=== PATIENT | male | born 1990 | race Caucasian/White ===

== ENCOUNTER 2016-05-25 16:28 | Emergency (ER) | payer BC ==
[2016-05-25 17:34] VITALS: BP 111/68
--- NOTE | 2016-05-25 17:53 | UC ---
Throat Pain/Nasal Theo HPI - HPI Summary HPI Summary: Sore throat for a couple of days - History of Current Complaint Chief Complaint: UCRespiratory Stated Complaint: SORE THROAT Time Seen by Provider: 05/25/16 17:46 Hx Obtained From: Patient Onset/Duration: Sudden Onset, Lasting Days - 2, Still Present Severity: Moderate Pain Intensity: 5 Pain Scale Used: 0-10 Numeric Cough: None Associated Signs & Symptoms: Positive: Negative - Allergies/Home Medications Allergies/Adverse Reactions: Allergies Allergy/AdvReac Type Severity Reaction Status Date / Time No Known Allergies Allergy Verified 05/25/16 17:34 Home Medications: Home Medications NK [No Home Medications Reported] 05/25/16 [History Confirmed 05/25/16] PMH/Surg Hx/FS Hx/Imm Hx Previously Healthy: Yes - Surgical History Surgical History: None - Family History Known Family History: Positive: None - Social History Occupation: Employed Full-time - in retail Lives: With Family Alcohol Use: Rare Substance Use Type: None Smoking Status (MU): Never Smoked Tobacco Review of Systems Constitutional: Negative Skin: Negative Eyes: Negative ENT: Sore Throat Respiratory: Negative Cardiovascular: Negative Gastrointestinal: Negative Genitourinary: Negative Motor: Negative Neurovascular: Negative Musculoskeletal: Negative Neurological: Negative Psychological: Negative All Other Systems Reviewed And Are Negative: Yes Physical Exam Triage Information Reviewed: Yes Appearance: Well-Appearing, No Pain Distress, Well-Nourished Vital Signs: Initial Vital Signs Temp 99.2 F 05/25/16 17:31 Pulse 78 05/25/16 17:31 Resp 16 05/25/16 17:31 BP 111/68 05/25/16 17:31 Pulse Ox 100 05/25/16 17:31 Vital Signs Reviewed: Yes Eye Exam: Normal Eyes: Positive: Conjunctiva Clear ENT Exam: Normal ENT: Positive: Normal ENT inspection, Hearing grossly normal, Pharynx normal, TMs normal. Negative: Nasal congestion, Nasal drainage, Tonsillar swelling, Tonsillar exudate, Trismus, Muffled/hoarse voice Dental Exam: Normal Neck exam: Normal Neck: Positive: Supple, Nontender, No Lymphadenopathy Respiratory Exam: Normal Respiratory: Positive: Chest non-tender, Lungs clear, Normal breath sounds, No respiratory distress, No accessory muscle use Cardiovascular Exam: Normal Cardiovascular: Positive: RRR, No Murmur, Pulses Normal, Brisk Capillary Refill Musculoskeletal Exam: Normal Musculoskeletal: Positive: Strength Intact, ROM Intact, No Edema Neurological Exam: Normal Neurological: Positive: Alert, Muscle Tone Normal Psychological Exam: Normal Skin Exam: Normal Diagnostics - Laboratory Diagnostic Studies Completed/Ordered: RST (-) Throat Pain/Nasal Course/Dx - Course Assessment/Plan: ibuprofen, tylenol, rest increase fluids, follow with pcp prn - Differential Dx/Diagnosis Differential Diagnosis/HQI/PQRI: Laryngitis, Pharyngitis, Sinusitis, URI Provider Diagnoses: Viral syndrome, pharyngitis Discharge - Discharge Plan Condition: Stable Disposition: HOME Patient Education Materials: Pharyngitis (ED), Viral Syndrome (ED) Referrals: [facility] [place] [facility] [Outside] - If Needed
== END 2016-05-25 18:01 | disposition home or self-care (01) ==
LOC: UCEAST 16:28
DX: B34.9 Viral infection, unspecified (principal); J02.9 Acute pharyngitis, unspecified
CPT/HCPCS: 87651; 99201; G0463

== ENCOUNTER 2016-07-10 09:09 | Emergency (ER) | payer BC ==
[2016-07-10 09:37] VITALS: BP 98/55
--- NOTE | 2016-07-11 12:58 | UC ---
[facility] [place], [facility]10[facility]16 at 1045 . General HPI - HPI Summary HPI Summary: In Room note: Patient is a 25 y/o male who presents to the with N/V/D since 0100 today. He reports a subjective fever, chills, general malaise, headache (within temples) and abd pain, but denies ear pain or urinary sx. Pt states he has been drinking An Cassia. He denies a hx of similar sx or any sick family members or friends. note: VSS, temperature: 99.4, 4/10 abd pain. Visit hx: non-contributory. No px medication. No allergies. Nurses note: nausea and vomiting, diarrheal stool started last pm - History of Current Complaint Chief Complaint: UCAbdominalPain Stated Complaint: VOMITING DIZZY FLU Time Seen by Provider: 07/10/16 10:31 Hx Obtained From: Patient Onset/Duration: Gradual Onset, Lasting Hours, Still Present Timing: Intermittent Episodes Lasting: Onset Severity: Moderate Current Severity: Moderate Pain Intensity: 4 - out of 10. Pain Location at: Diffuse abd pain. Aggravating: Nothing. Alleviating: Nothing. Associated Signs & Symptoms: Positive: Abdominal Pain, Diarrhea, Fever, Headache , Nausea, Vomiting, Other - General malaise. Chills. - Allergy/Home Medications Allergies/Adverse Reactions: Allergies Allergy/AdvReac Type Severity Reaction Status Date / Time No Known Allergies Allergy Verified 05/25/16 17:34 PMH/Surg Hx/FS Hx/Imm Hx Endocrine History Of: Denies: Diabetes, Thyroid Disease Cardiovascular History Of: Denies: Cardiac Disorders, Hypertension Respiratory History Of: Denies: COPD, Asthma GI/ History Of: Denies: Ulcer - Surgical History Surgical History: None - Family History Known Family History: Positive: Other - No CA. Negative: Cardiac Disease, Hypertension - Social History Alcohol Use: Rare Substance Use Type: None Smoking Status (MU): Never Smoked Tobacco Review of Systems Constitutional: Fever, Chills, Other - General malaise. ENT: Other - No ear pain. Gastrointestinal: Abdominal Pain Genitourinary: Negative Neurological: Headache All Other Systems Reviewed And Are Negative: Yes Physical Exam Triage Information Reviewed: Yes Appearance: Well-Appearing, No Pain Distress, Well-Nourished Vital Signs: Initial Vital Signs Temp 99.4 F 07/10/16 09:33 Pulse 94 07/10/16 09:33 Resp 20 07/10/16 09:33 BP 98/55 07/10/16 09:33 Pulse Ox 100 07/10/16 09:33 Vital Signs Reviewed: Yes Eyes: Positive: Conjunctiva Clear ENT: Positive: Hearing grossly normal, Pharynx normal, TMs normal. Negative: Muffled/hoarse voice Neck: Positive: Supple, No Lymphadenopathy Respiratory: Positive: Chest non-tender, Lungs clear, Normal breath sounds, No respiratory distress Cardiovascular: Positive: RRR, No Murmur Abdomen Description: Positive: Nontender, No Organomegaly, Soft, Other: - Negative Eden's sign and McBurney's sign.. Negative: CVA Tenderness (R), CVA Tenderness (L) Bowel Sounds: Positive: Hyperactive Musculoskeletal: Positive: Strength Intact Neurological: Positive: Alert Psychological: Positive: Age Appropriate Behavior Skin: Negative: rashes Course/Dx - Course Course Of Treatment: Medications have been included in the original chart and reviewed. I discussed with the pt the various possibilities, and explained that he probably has gastroenteritis. He should restrict his intake, rest, and watch for any signs of dehydration. Normal BP reading and no follow-up instructions required. - Differential Dx - Multi-Symptom Differential Diagnoses: Other - Gastroenteritis, gall bladder disease, or appendicitis. Provider Diagnoses: Gastroenteritis. Discharge - Discharge Plan Condition: Stable Disposition: HOME Patient Education Materials: Dehydration (ED), Gastroenteritis (ED) Forms: *Work Release Referrals: No Primary Care Phys,NOPCP [Primary Care Provider] - Additional Instructions: WE DISCUSSED: You have stomach flu. Small sips of fluids or ice chips. Make sure you keep urinating. Rest. Follow up for any new signs or symptoms. Call us with any questions or concerns. The documentation as recorded by the Wilson moreira [place] accurately reflects the service I personally performed and the decisions made by me, Rommel Fitzpatrick MD.
== END 2016-07-10 10:57 | disposition home or self-care (01) ==
LOC: UCEAST 09:09
DX: K52.9 Noninfective gastroenteritis and colitis, unspecified (principal)
CPT/HCPCS: 99201; G0463